=== PATIENT | female | born 1955 | race Caucasian/White ===

== ENCOUNTER → 2017-06-13 | Outpatient (CLI) | payer BC | LOC: MC.RAD 09:31 | DX: Z12.31 Encounter for screening mammogram for malignant neoplasm of breast (principal); N63.20 Unspecified lump in the left breast, unspecified quadrant ==

== ENCOUNTER → 2018-08-09 | Outpatient (CLI) | payer BC | LOC: MC.RAD 08:47 | DX: Z12.31 Encounter for screening mammogram for malignant neoplasm of breast (principal) ==

== ENCOUNTER → 2020-06-30 | Outpatient (CLI) | payer BC | LOC: MC.RAD 07:21 | DX: Z12.31 Encounter for screening mammogram for malignant neoplasm of breast (principal) ==

== ENCOUNTER → 2021-08-31 | Outpatient (CLI) | payer BC | LOC: MC.RAD 14:31 | DX: Z12.31 Encounter for screening mammogram for malignant neoplasm of breast (principal) ==

== ENCOUNTER → 2023-09-12 | Outpatient (CLI) | payer MEDICARE | LOC: MC.RAD 08:07 → COL.RAD 08:15 | DX: Z12.31 Encounter for screening mammogram for malignant neoplasm of breast (principal) ==